=== PATIENT | male | born 1940 | race African-American/Black ===

== ENCOUNTER 2019-05-27 11:40 | Emergency (ER) | payer MEDICARE ==
--- OUTSIDE RECORDS SUMMARY | 2019-05-27 12:16 | XMS REPORT | Continuity of Care Document ---
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 [phone] Problems Description No Information Available Social History Type Date Description Comments Sex Unknown ETOH Use Currently consumes alcohol Tobacco Use Start: Unknown End: Patient is a former smoker Unknown Smoking Status Reviewed: 05/13/19 Patient is a former smoker Exercise Type/Frequency Exercises sporadically Allergies, Adverse Reactions, Alerts Active Allergies Reaction Severity Comments Date Oxycodone vomiting 04/30/2019 Medications Active Medications SIG Qnty Indications Ordering Provider Date Amlodipine Besylate 1 by mouth every Unknown 10mg day Tablets Clonidine HCL 1 by mouth twice Unknown 0.2mg Tablets a day Intelence 1 po bid Unknown 200mg Tablets Glucosamine Chondroitin 1 by mouth every Unknown 500 Complex day 500Comp Capsules Ferrous Sulfate 1 by mouth every Unknown 325mg day Tablets Isentress 1 by mouth twice Unknown 400mg Tablets a day Melatonex 2 tabs at bedtime Unknown 3-10mg Tablets ER Metoprolol Succinate ER 1 by mouth every Unknown day 50mg Tablets ER 24HR Norvir once daily Unknown 100mg Tablets Omeprazole 1 by mouth every Unknown 20mg Capsules DR day Prezista once daily Unknown 800mg Tablets Vitamin D3 once daily Unknown 2000Unit Chewtabs Acetaminophen Extra 2 tabs by mouth Unknown Strength every 8 hours as 500mg Tablets needed for pain Lactaid take 1 tab by Unknown 3000Unit Tablets mouth 3 times daily Immunizations Description No Information Available Vital Signs Date Vital Result Comment 05/13/2019 1:49pm Heart Rate 66 /min BP Systolic 111 mmHg BP Diastolic 71 mmHg Respiratory Rate 16 /min Pain Level 10 04/30/2019 11:05am Heart Rate 72 /min BP Systolic Sitting 120 mmHg BP Diastolic Sitting 70 mmHg Respiratory Rate 14 /min Body Temperature 97.0 F Results Description No Information Available Procedures Description No Information Available Medical Devices Description No Information Available Encounters Type Date Location Provider Dx Diagnosis Office Visit 05/13/2019 [facility] Y[facility] Bae[facility] M17.0 Bilateral primary 2:[facility] Wilson MD osteoarthritis of knee M25.562 Pain in left knee M25.561 Pain in right knee Office Visit 04/30/2019 [facility] Kane Hughes Asymptomatic human 11:30a For Infectious Sally Berrios immunodeficiency virus Diseases infection status Z79.899 Other retirement (current) drug therapy Assessments Date Code Description Provider 05/13/2019 M17.0 Bilateral primary osteoarthritis of knee Yousuf Wilson MD 05/13/2019 M25.562 Pain in left knee Yousuf Wilson MD 05/13/2019 M25.561 Pain in right knee Yousuf Wilson MD 04/30/2019 Z21 Asymptomatic human immunodeficiency Kane Berrios M.D. 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 Plan of Treatment Future Appointment(s):08/13/2019 11:30 am - Yousuf [facility] MD at [facility]/02/2019 1:20 pm - Kane Berrios M.D. at [facility] Prjbotjt64/19/2019 - Yousuf Wilson, MDM17.0 Bilateral primary osteoarthritis of kneeNew Therapy:Physical TherapyFollow up: Follow up: 3 mifwrpA39.562 Pain in left kneeM25.561 Pain in right knee Functional Status Description No Information Available Mental Status Description No Information Available Referrals Description No Information Available
--- OUTSIDE RECORDS SUMMARY | 2019-05-27 12:16 | XMS REPORT | Continuity of Care Document ---
:1940 External Reference #:[id number] Author Name Camila Welsh Care Team Providers Name Role Phone Anthony Davalos MD Primary Care Physician Unavailable Payers Date Identification Numbers Payment Provider Subscriber Policy Number: [id number] Medicare William Nobles PayID: [id number] [address] [place] [address] Family History Date Family Member(s) Observation Comments General No Current Problems Social History Type Date Description Comments Sex Unknown Tobacco Use Start: Unknown End: Unknown Patient is a former smoker Smoking Status Reviewed: 04/30/19 Patient is a former smoker Allergies, Adverse Reactions, Alerts Active Allergies Reaction [...] Unknown 3000Unit Tablets mouth 3 times daily Vital Signs Date Vital Result Comment 04/30/2019 11:05am Heart Rate 72 /min BP Systolic Sitting 120 mmHg BP Diastolic Sitting 70 mmHg Respiratory Rate 14 /min Body Temperature 97.0 F Plan of Treatment Future Appointment(s):09/02/2019 1:20 pm - Kane Berrios M.D. at [facility] For Infectious Smlfzvbc53/14/2019 2:00 pm - Yousuf Wilson MD at [facility]/30/2019 - Kane Berrios M.D.Z21 Asymptomatic human immunodeficiency virus infection statusComments:same ART, RAMOS filled out today to obtain recent lab results from [facility]. Is on a nuc sparingregimen which may be due to CKD, not clear he has a history of acquired nuc resistance.Follow up:4 tldlitX03.899 Other prison (current) drug therapyComments:continue regular lab monitoring and fu, flu shot in the fall
--- NOTE | 2019-05-27 13:37 | ED ---
Lower Extremity - HPI Summary HPI Summary: This patient is a 78-year-old male presenting to the ED with left ankle pain. Patient states he has had this left ankle pain for 2 days since getting out of the wheelchair plied he does endorse some swelling, but denies any difficulty with plantar flexion or dorsiflexion. Denies any numbness or tingling. Denies any other injuries. He is endorsing the pain at a 1/10, mild and only present when trying to bear weight. He told this to the staff today and the staff called ambulance/EMS. He was transported here to the ED. - History of Current Complaint Chief Complaint: EDExtremityLower Stated Complaint: INJURED ANKLE PER EMS Time Seen by Provider: 05/27/19 11:43 Hx Obtained From: Patient Mechanism Of Injury: Twisted Onset of Pain: Hours Onset/Duration: Hours Severity Initially: Moderate Severity Currently: Moderate Pain Intensity: 4 Pain Scale Used: 0-10 Numeric Timing: Constant Location: Is Discrete @ - left lateral ankle pain Associated Signs And Symptoms: Positive: Swelling. Negative: Redness, Bruising , Fever, Weakness Aggravating Factor(s): Standing, Ambulation Alleviating Factor(s): Rest Able to Bear Weight: Yes - Allergies/Home Medications Allergies/Adverse Reactions: Allergies Allergy/AdvReac Type Severity Reaction Status Date / Time acetaminophen [From Percocet] Allergy Vomiting Verified 05/27/19 11:45 oxycodone [From Percocet] Allergy Vomiting Verified 05/27/19 11:45 Home Medications: Home Medications Acetaminophen TAB* [Tylenol TAB*] 1,000 mg PO Q6H PRN 05/27/19 [History Confirmed 05/27/19] Cholecalciferol (Vitamin D3) [Vitamin D3] 2,000 unit PO DAILY 05/27/19 [History Confirmed 05/27/19] Darunavir(NF) [Prezista(NF)] 800 mg PO DAILY 05/27/19 [History Confirmed ] Etravirine (NF) [Intelence (NF)] 200 mg PO BID 05/27/19 [History Confirmed 05/27] Ferrous Sulfate TAB* 325 mg PO DAILY 05/27/19 [History Confirmed 05/27/19] Glucosam/Chondr/Collagn/Hyalur [Th Glucosamine/Chondroiti] 1 cap PO DAILY [History Confirmed 05/27/19] Lactase [Lactaid] 3,000 unit PO TID PRN 05/27/19 [History Confirmed 05/27/19] Melatonin/Pyridoxine HCl (B6) [Melatonin 3 mg Tablet] 2 each PO BEDTIME [History Confirmed 05/27/19] Metoprolol Succinate XL TAB* [Toprol XL TAB*] 50 mg PO DAILY 05/27/19 [History Confirmed 05/27/19] Omeprazole CAP(NF) [PriLOSEC CAP(NF)] 20 mg PO DAILY 05/27/19 [History Confirmed 05/27/19] Raltegravir* [Isentress*] 400 mg PO BID 05/27/19 [History Confirmed 05/27/19] Ritonavir TAB (NF) [Norvir TAB (NF)] 100 mg PO DAILY 05/27/19 [History Confirmed 05/27/19] amLODIPine TAB* [Norvasc 5 mg TAB*] 10 mg PO DAILY 05/27/19 [History Confirmed 05/27/19] cloNIDine TAB* [Catapres 0.1 MG TAB*] 0.2 mg PO DAILY 05/27/19 [History Confirmed 05/27/19] PMH/Surg Hx/FS Hx/Imm Hx Previously Healthy: Yes - Immunization History Hx Pertussis Vaccination: No Immunizations Up to Date: Yes Infectious Disease History: No Infectious Disease History: Denies: Traveled Outside the [place] in Last 30 Days - Social History Occupation: Unemployed Lives: At [facility] Alcohol Use: None Hx Substance Use: No Substance Use Type: Reports: None Hx Tobacco Use: No Smoking Status (MU): Never Smoked Tobacco Review of Systems Negative: Fever, Chills, Fatigue, Skin Diaphoresis Negative: Palpitations, Chest Pain Genitourinary: Negative Positive: no symptoms reported, see HPI Positive: Arthralgia - left lateral ankle pain Skin: Negative Neurological: Negative All Other Systems Reviewed And Are Negative: Yes Physical Exam Triage Information Reviewed: Yes Vital Signs On Initial Exam: Initial Vitals Temp Pulse Resp BP Pulse Ox 97.3 F 74 19 174/94 99 05/27/19 11:43 05/27/19 11:43 05/27/19 11:43 05/27/19 11:43 05/27/19 11:43 Vital Signs Reviewed: Yes Appearance: Positive: Well-Appearing, No Pain Distress, Well-Nourished Skin: Positive: Warm, Skin Color Reflects Adequate Perfusion Head/Face: Positive: Normal Head/Face Inspection Eyes: Positive: EOMI, NACHO, Conjunctiva Clear Neck: Positive: Supple, No Lymphadenopathy Respiratory/Lung Sounds: Positive: Breath Sounds Present Cardiovascular: Negative: Leg Edema Left, Leg Edema Right Musculoskeletal: Positive: Pain @ - left lateral ankle pain Psychiatric: Positive: Affect/Mood Appropriate AVPU Assessment: Alert Diagnostics - Vital Signs Vital Signs Temp Pulse Resp BP Pulse Ox 05/27/19 11:43 97.3 F 74 19 174/94 99 - Laboratory Lab Statement: Any lab studies that have been ordered have been reviewed, and results considered in the medical decision making process. Lower Extremity Course/Dx - Course Course Of Treatment: Patient is evaluated for left lateral and dorsum ankle pain. He states this was caught in his wheelchair about 2 days ago and it has remained in pain since that time. He does endorse a 2/10 pain, however only when attempting to bear weight. Otherwise, he states he does not have discomfort. He does endorse some swelling to the lateral side. EMS was called for a image to ensure this was not fractured. On evaluation, the patient appears well, offering no complaints. Dorsiflexion and plantar's flexion intact and without discomfort. Only slight swelling noted. No ecchymosis. - Diagnoses Differential Diagnosis/HQI/PQRI: Positive: Contusion, Fracture (Closed), Sprain , Strain Provider Diagnoses: Ankle sprain Discharge ED - Sign-Out/Discharge Documenting (check all that apply): Patient Departure Patient Received Moderate/Deep Sedation with Procedure: No - Discharge Plan Condition: Stable Disposition: HOME Patient Education Materials: Ankle Sprain (ED) Referrals: Scarlett Lee MD [Primary Care Provider] - Additional Instructions: No fracture of the ankle - Billing Disposition and Condition Condition: STABLE Disposition: Home
[2019-05-27 14:22] VITALS: BP 166/99
== END 2019-05-27 14:21 | disposition home or self-care (01) ==
LOC: ED 11:40
DX: S93.402A Sprain of unspecified ligament of left ankle, initial encounter (principal); W23.0XXA Caught, crushed, jammed, or pinched between moving objects, initial encounter; Y92.9 Unspecified place or not applicable; Z79.899 Other long term (current) drug therapy; Z88.6 Allergy status to analgesic agent; Z88.5 Allergy status to narcotic agent
CPT/HCPCS: 99282

== ENCOUNTER 2019-10-12 12:23 | Emergency (ER) | payer MEDICARE, MEDICAID ==
--- NOTE | 2019-10-12 12:57 | ED ---
Lower Extremity - HPI Summary HPI Summary: 79-year-old male presents with right ankle pain for the past couple days. States he woke up and his foot was swollen. He has had a history of gout which this does not feel similar. He denies any foot tenderness. He states he was on steroids for gout a couple days ago in the other foot. He states he may run over his foot with wheelchair. He gets around with a wheelchair. He admits to some numbness and tingling. Denies any knee pain. no calf pain. no fevers. no rash. never had this before. No other injury. - History of Current Complaint Chief Complaint: EDExtremityLower Stated Complaint: RT FOOT PAIN PER EMS Time Seen by Provider: 10/12/19 12:33 Pain Intensity: 10 - Allergies/Home Medications Allergies/Adverse Reactions: Allergies Allergy/AdvReac Type Severity Reaction Status Date / Time acetaminophen [From Percocet] Allergy Vomiting Verified 05/27/19 11:45 oxycodone [From Percocet] Allergy Vomiting Verified 05/27/19 11:45 PMH/Surg Hx/FS Hx/Imm Hx Endocrine/Hematology History: Denies: Hx Anticoagulant Therapy Musculoskeletal History: Reports: Hx Gout Infectious Disease History: No Infectious Disease History: Denies: Traveled Outside the [place] in Last 30 Days - Family History Known Family History: Positive: Non-Contributory - Social History Alcohol Use: None Alcohol Amount: "no more" Hx Substance Use: No Substance Use Type: Reports: None Substance Use Comment - Amount & Last Used: "no more" Hx Tobacco Use: No Smoking Status (MU): Former Smoker Review of Systems Negative: Fever Negative: Chest Pain Negative: Shortness Of Breath Positive: Myalgia - right ankle pain, Edema All Other Systems Reviewed And Are Negative: Yes Physical Exam Triage Information Reviewed: Yes Vital Signs On Initial Exam: Initial Vitals Temp Pulse Resp BP Pulse Ox 98.9 F 73 16 120/69 96 10/12/19 12:28 10/12/19 12:28 10/12/19 12:28 10/12/19 12:28 10/12/19 12:28 Vital Signs Reviewed: Yes Appearance: Positive: Well-Appearing Skin: Positive: Warm, Dry Head/Face: Positive: Normal Head/Face Inspection Eyes: Positive: Normal, Conjunctiva Clear ENT: Positive: Pharynx normal Respiratory/Lung Sounds: Positive: Clear to Auscultation, Breath Sounds Present Cardiovascular: Positive: Normal, RRR Musculoskeletal: Positive: Strength/ROM Intact - right foot, Edema Right - foot , Other - good pulses, sensation grossly intact, tenderness lateral right ankle Neurological: Positive: Normal Psychiatric: Positive: Normal Procedures - Sedation Patient Received Moderate/Deep Sedation with Procedure: No Diagnostics - Vital Signs Vital Signs Temp Pulse Resp BP Pulse Ox 10/12/19 12:28 98.9 F 73 16 120/69 96 - Laboratory Lab Statement: Any lab studies that have been ordered have been reviewed, and results considered in the medical decision making process. - Radiology foot Radiology Interpretation Completed By: Radiologist Summary of Radiographic Findings: IMPRESSION: DIFFUSE SOFT TISSUE SWELLING, NO FRACTURE IS SEEN. IF THE PATIENT'S SYMPTOMS PERSIST RECOMMEND FOLLOW-UP IMAGING ankle Radiology Interpretation Completed By: Radiologist Summary of Radiographic Findings: IMPRESSION: SOFT TISSUE SWELLING, NO FRACTURE IS SEEN. IF THE PATIENT'S SYMPTOMS PERSIST RECOMMEND FOLLOW-UP IMAGING. Lower Extremity Course/Dx - Course Course Of Treatment: 79-year-old male presents with right ankle pain for the past couple days. States he woke up and his foot was swollen. He has had a history of gout which this does not feel similar. He denies any foot tenderness. He states he was on steroids for gout a couple days ago in the other foot. He states he may run over his foot with wheelchair. He gets around with a wheelchair. He admits to some numbness and tingling. Denies any knee pain. no calf pain. no fevers. no rash. never had this before. No other injury. On exam has edema to top of right foot. Neurovascular intact. Tenderness over right lateral malleolus. X-rays shows no fracture. likely contusion. told to ice and elevated. patient understand and agrees with plan. - Diagnoses Differential Diagnosis/HQI/PQRI: Positive: Fracture (Closed), Sprain, Strain Provider Diagnoses: Edema of right foot Discharge ED - Sign-Out/Discharge Documenting (check all that apply): Patient Departure - Discharge Plan Condition: Good Disposition: HOME Patient Education Materials: R.I.C.E. Treatment (ED) Referrals: Scarlett Lee MD [Primary Care Provider] - Additional Instructions: Take Tylenol every 6 hours as needed for pain Apply ice, rest, elevate Keep nati on area as needed Follow up with primary care physician within 5 days Return to ED if develop any new or worsening symptoms - Billing Disposition and Condition Condition: GOOD Disposition: Home - Attestation Statements Provider Attestation: I was available for consultation for this patient. I did not evaluate the patient or participate in any medical decision making or disposition decisions unless I am specifically named in the chart as having consulted on the patient. If I have consulted on the patient, please see my own ED note on the patient encounter. Ronda Mojica MD
[2019-10-12] MEDS ORDERED: Acetaminophen TAB* 325 MG PO ONE (14:02)
--- OUTSIDE RECORDS SUMMARY | 2019-10-12 14:07 | XMS REPORT | Continuity of Care Document ---
:1940 External Reference #:[id number] Author Name Kane Berrios M.D. 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 Problems Provider Date Localized, primary osteoarthritis Yousuf Wilson MD Onset: 08/13/2019 Social History Type Date Description Comments Sex Unknown ETOH Use Currently consumes alcohol Tobacco Use Start: Unknown End: Patient is a former smoker Unknown Smoking Status Reviewed: 09/02/19 Patient is a former smoker Exercise Type/Frequency [...] Unknown 3000Unit Tablets mouth 3 times daily Medications Administered in Office Medication SIG Qnty Indications Ordering Provider Date Depomedrol 40MG BETTYE Aly 08/13/2019 Injection Depomedrol 40MG BETTYE Aly 08/13/2019 Injection Immunizations Description No Information Available Vital Signs Date Vital Result Comment 09/02/2019 1:24pm Height 67 inches 5'7" Weight 170.00 lb per pt Heart Rate 72 /min BP Systolic Sitting 128 mmHg BP Diastolic Sitting 70 mmHg Respiratory Rate 14 /min Body Temperature 97.5 F BMI (Body Mass Index) 26.6 kg/m2 08/14/2019 10:50am Height 67 inches 5'7" Weight 170.00 lb Heart Rate 73 /min BP Systolic Sitting 120 mmHg left arm reg cuff BP Diastolic Sitting 68 mmHg left arm reg cuff O2 % BldC Oximetry 91 % room air BMI (Body Mass Index) 26.6 kg/m2 Results Description No Information Available Procedures Date Code Description Status 08/13/2019 52569 Inject/Drain Joint/Bursa Major W/O US Completed 08/13/2019 29025 Inject/Drain Joint/Bursa Major W/O US Completed Medical Devices Description No Information Available Encounters Type Date Location Provider Dx Diagnosis Office Visit 08/14/2019 [facility] Jo Ann Quiñonez MD 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 N18.4 Chronic kidney disease, stage 4 (severe) R80.9 Proteinuria, unspecified Office Visit 05/13/2019 [place] Yousuf Sasha M17.0 Bilateral primary 2:15p [facility] osteoarthritis of [place] knee M25.562 Pain in left knee M25.561 Pain in right knee Office Visit 04/30/2019 [facility] Tolbert Z21 Asymptomatic human 11:30a For Infectious Sally Berrios immunodeficiency virus Diseases infection status 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 virus [HIV] infection status 09/02/2019 Z79.899 Other senior care (current) drug therapy Kane Berrios M.D. 09/02/2019 N18.4 Chronic kidney disease, stage 4 (severe) Kane Berrios M.D. 08/14/2019 I12.9 Hypertensive chronic kidney disease with Jo Ann Quiñonez MD stage 1 through stage 4 chronic kidney disease, or unspecified chronic kidney disease 08/14/2019 N18.4 Chronic kidney disease, stage 4 (severe) Jo Ann Quiñonez MD 08/14/2019 R80.9 Proteinuria, unspecified Jo Ann Quiñonez MD 08/13/2019 M17.0 Bilateral primary osteoarthritis of knee Yousuf Wilson MD 05/13/2019 M17.0 Bilateral primary osteoarthritis of knee Yousuf Wilson MD 05/13/2019 M25.562 Pain in left knee Yousuf Wilson MD 05/13/2019 M25.561 Pain in right knee Yousuf Wilson MD 04/30/2019 Z21 Asymptomatic human immunodeficiency Kane Berrios M.D. 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 Plan of Treatment Future Appointment(s):03/03/2020 9:30 am - Kane Berrios M.D. at [facility] Etvoiqcl46/20/2020 10:00 am - Jo Ann Quiñonez MD at [facility] Snjdriiaha86/19/2020 10:15 am - Yousuf Wilson MD at [facility] at Tvqckn6108/13/2019 - Yousuf Wilson MDM17.0 Bilateral primary osteoarthritis of kneeNew Therapy:Physical TherapyFollow up:Follow up: 3-4 months - Physical therapy Functional Status Description No Information Available Mental Status Description No Information Available Referrals Description No Information Available
--- OUTSIDE RECORDS SUMMARY | 2019-10-12 14:07 | XMS REPORT ---
:1940 Author Organization [facility] Care Team Providers Name Role Phone Unavailable Unavailable Unavailable Problems Condition Condition Condition Status Onset Resolution Last Treating Comments Name Details Category Date Date Treatment Clinician Date Bilateral Bilateral Diagnosis Active Siria primary primary 1-13 Garcia osteoarthri osteoarthri tis of knee tis of knee Allergies, Adverse Reactions, Alerts Allergy Allergy Status Severity Reaction(s) Onset Inactive Treating Comments Name Type Date Date Clinician oxycodone Unknown Active Unknown Reaction 2019-04 Brittany Unknown -11 (Khari) Grace [id number] Medications Ordered Filled Start Stop Current Ordering Indication Dosage Frequency Signature Comments Components Medication Medication Date Date Medication? Clinician (SIG) Name Name No Known No Known No None None None Medications Medications For This For This Patient Patient Procedures This patient has no known procedures. Results This patient has no known results.
--- OUTSIDE RECORDS SUMMARY | 2019-10-12 14:07 | XMS REPORT ---
:1940 Author Organization [facility] Care Team Providers Name Role Phone Unavailable Unavailable Unavailable Problems Condition Condition Condition Status Onset Resolution Last Treating Comments Name Details Category Date Date Treatment Clinician Date Bilateral Bilateral Diagnosis Active Siria primary primary 10-07 Garcia osteoarthri osteoarthri tis of knee tis of knee Idiopathic Idiopathic Diagnosis Active Siria gout, left gout, left Garcia ankle and ankle and foot foot Hypertensiv Hypertensiv Diagnosis Active Siria e chronic e chronic Garcia kidney kidney disease disease with stage with stage 1 through 1 through stage 4 stage 4 chronic chronic kidney kidney disease, or disease, or unspecified unspecified chronic chronic kidney kidney disease disease Essential Essential Diagnosis Active Siria (primary) (primary) Garcia hypertensio hypertensio n n 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 [HIV] [HIV] disease disease Gastro-esop Gastro-esop Diagnosis Active Siria hageal hageal Jose reflux reflux disease disease without without esophagitis esophagitis Iron Iron Diagnosis Active Siria deficiency deficiency Garcia anemia, anemia, unspecified unspecified Unsteadines Unsteadines Diagnosis Active Siria s on feet s on feet Jose Insomnia, Insomnia, Diagnosis Active Siria unspecified unspecified Garcia 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 thy thy Pain frequent Pain Mgmt Resolve 2019-10-11 Brittany pain d 10-08 08:45:00 (Khari) 08:50: Grace 00 [id number] Cardio edema Cardiovasc Active Brittany ular 10-08 (Khari) 08:50: Grace 00 [id number] Respiratory dyspnea Respirator Resolve 2019-10-11 Brittany present y d 10-08 08:45:00 (Khari) 08:50: Grace 00 [id number] Endo/Jermain anti-coagul Endo/Jermain Resolve 2019-10-11 Brittany ation d 10-08 08:45:00 (Khari) therapy 08:50: Edwards 00 [id number] Integument pressure Integument Active Brittany ulcer 10-08 (Khari) present 08:50: Edwards 00 [id number] Integument skin Integument Active Brittany integrity 10-08 (Khari) risk 08:50: Edwards 00 [id number] Elimination urinary Eliminatio Resolve 2019-10-11 Brittany incontinenc n d 10-08 08:45:00 (Khari) e 08:50: Edwards 00 [id number] Neuro confusion Neuro/Emot Active 0 Brittany present ion 10-08 (Khari) 08:50: Edwards 00 [id number] Neuro impaired Neuro/Emot Active Brittany decision-ma ion 10-08 (Khari) zhen 08:50: Edwards 00 [id number] Neuro memory Neuro/Emot Active Brittany deficit ion 10-08 (Khari) needing 08:50: Edwards supervision 00 [id number] Activity ADL Activity Active Tamera assistance 10-08 Justin required 08:50: [id number] Activity self-care Activity Active 0 Brittany deficit 10-08 (Khari) 08:50: Edwards 00 [id number] Safety risk for Safety Active 2019-0 Tamera hospitaliza 10-08 Justin tion 08:50: [id number] Safety cannot be Safety Active 0 Brittany left alone 10-08 (Khari) 08:50: Edwards 00 [id number] Safety fall risk Safety Active 2019-0 Brittany factor 10-08 (Khari) present 08:50: Edwards 00 [id number] Medication oral med Meds Resolve 2019-10-11 Brittany assistance d 10-08 08:45:00 (Khari) required 08:50: Edwards 00 [id number] Musculoskel transfer Musculoske Resolve 2019-10-11 Tamera etal assistance letal d 10-08 08:45:00 Justin required 08:50: [id number] Musculoskel requires Musculoske Resolve 2019-10-11 Brittany etal human letal d 10-08 08:45:00 (Khari) assist to 08:50: Grace leave home 00 [id number] Safety can be left Safety Active Siria alone for -17 Garcia only short 08:45: periods 00 Allergies, Adverse Reactions, Alerts Allergy Allergy Status Severity Reaction(s) Onset Inactive Treating Comments Name Type Date Date Clinician oxycodone Unknown Active Unknown Reaction 2019-04 Brittany Unknown -11 (Khari) Grace [id number] Medications Ordered Filled Start Stop Current Ordering Indication Dosage Frequency Signature Comments Components Medication Medication Date Date Medication? Clinician (SIG) Name Name amLODIPine amLODIPine 2019-0 Yes Jander Unknown Unknown 10 mg 10 mg -14 MD,Scarlett tablet tablet cloNIDine cloNIDine 2019-0 Yes Jander Unknown Unknown HCl 0.2 mg HCl 0.2 mg - MD,Scarlett tablet tablet etravirine etravirine 2019-0 Yes Jander Unknown Unknown 200 mg 200 mg -14 MD,Scarlett tablet tablet Glucosamine Glucosamine 2019-0 Yes Jander Unknown Unknown Chondroitin Chondroitin -14 MD,Scarlett 550 mg-30 550 mg-30 mg-1 mg mg-1 mg capsule capsule ferrous ferrous 2019-0 Yes Jander Unknown Unknown sulfate 325 sulfate 325 -14 MD,Scarlett mg (65 mg mg (65 mg iron) iron) tablet tablet Isentress Isentress 2019-0 Yes Jander Unknown Unknown 400 mg 400 mg -14 MD,Scarlett tablet tablet melatonin 3 melatonin 3 2019-0 Yes Jander Unknown Unknown mg tablet mg tablet -14 MD,Scarlett ritonavir ritonavir 2019-0 Yes Jander Unknown Unknown 100 mg 100 mg -14 MD,Scarlett capsule capsule omeprazole omeprazole 2019-0 Yes Jander Unknown Unknown 20 mg 20 mg -14 MD,Scarlett capsule,del capsule,del ayed ayed release release Prezista Prezista 2020-0 Yes Jander Unknown Unknown 800 mg 800 mg -14 MD,Scarlett tablet tablet Vitamin D3 Vitamin D3 2019-0 Yes Jander Unknown Unknown 2,000 unit 2,000 unit -14 MD,Scarlett tablet tablet Acetaminoph Acetaminoph 2019-0 Yes Jander Unknown Unknown en Extra en Extra -14 MD,Scarlett Strength Strength 500 mg 500 mg tablet tablet Lactaid Lactaid 2019-0 Yes Jander Unknown Unknown 3,000 unit 3,000 unit 1-14 Scarlett QUESADA tablet tablet metoprolol metoprolol Yes Jander Unknown Unknown succinate succinate 10-08 Scarlett QUESADA ER 50 mg ER 50 mg capsule capsule sprinkle, sprinkle, ext. ext. release 24 release 24 hr hr Robitussin Robitussin 2019- Yes Jander Unknown Unknown Cough and Cough and 10-08 Scarlett QUESADA Cold CF 2.5 Cold CF 2.5 mg-5 mg-50 mg-5 mg-50 mg/5 mL mg/5 mL oral liquid oral liquid Vital Signs Vital Name Observation Time Observation Value Comments SYSTOLIC mm[Hg] 2019-10-11 18:09:55 150 mm[Hg] mm[Hg] Method: Sit DIASTOLIC mm[Hg] 2019-10-11 18:09:55 88 mm[Hg] mm[Hg] Method: Sit PULSE 2019-10-11 18:09:55 92 /min /min RESP RATE 2019-10-11 18:09:55 18 /min /min TEMP 2019-10-11 18:09:55 98.5 [degF] Procedures This patient has no known procedures. Results This patient has no known results.
--- OUTSIDE RECORDS SUMMARY | 2019-10-12 14:07 | XMS REPORT ---
:1940 Author Organization [facility] Care Team Providers Name Role Phone Unavailable Unavailable Unavailable Problems Condition Condition Condition Status Onset Resolution Last Treating Comments Name Details Category Date Date Treatment Clinician Date Bilateral Bilateral Diagnosis Active 2020-0 Siria primary primary 10-07 Garcia osteoarthri osteoarthri tis of knee tis of knee Pain frequent Pain Mgmt Active 2019-0 Brittany pain 10-08 (Khari) 08:50: Edwards 00 [id number] Cardio edema Cardiovasc Active 2019-0 Brittany ular 10-08 (Khari) 08:50: Edwards 00 [id number] Respiratory dyspnea Respirator Active 2019-0 Brittany present y 10-08 (Khari) 08:50: Edwards 00 [id number] Endo/Jermain anti-coagul Endo/Jermain Active 2020-0 Brittany ation 10-08 (Khari) therapy 08:50: Edwards 00 [id number] Integument pressure Integument Active 2019-0 Brittany ulcer 10-08 (Khari) present 08:50: Edwards 00 [id number] Integument skin Integument Active 0 Brittany integrity 10-08 (Khari) risk 08:50: Edwards 00 [id number] Elimination urinary Eliminatio Active 2019-0 Brittany incontinenc n 10-08 (Khari) e 08:50: Edwards 00 [id number] Neuro confusion Neuro/Emot Active 2020-0 Brittany present ion 10-08 (Khari) 08:50: Edwards 00 [id number] Neuro impaired Neuro/Emot Active 2020-0 Brittany decision-ma ion 10-08 (Khari) zhen 08:50: Edwards 00 [id number] Neuro memory Neuro/Emot Active 2020-0 Brittany deficit ion 10-08 (Khari) needing 08:50: Edwards supervision 00 [id number] Activity ADL Activity Active 2020-0 Tamera assistance 10-08 Justin required 08:50: [id number] Activity self-care Activity Active 2020-0 Brittany deficit 10-08 (Khari) 08:50: Grace 00 [id number] Safety risk for Safety Active Tamera conkliniza 10-08 Justin tion 08:50: [id number] Safety cannot be Safety Active 0 Brittany left alone 10-08 (Khari) 08:50: Grace 00 [id number] Safety fall risk Safety Active Brittany factor 10-08 (Khari) present 08:50: Grace [id number] Medication oral med Meds Active Brittany assistance 10-08 (Khari) required 08:50: Grace 00 [id number] Musculoskel transfer Musculoske Active Tamera etal assistance letal 10-08 Justin required 08:50: [id number] Musculoskel requires Musculoske Active Brittany etal human letal 10-08 (Khari) assist to 08:50: Grace leave home 00 [id number] Allergies, Adverse Reactions, Alerts Allergy Allergy Status Severity Reaction(s) Onset Inactive Treating Comments Name Type Date Date Clinician oxycodone Unknown Active Unknown Reaction 2019-04 Brittany Unknown -11 (Khari) Edwards [id number] Medications Ordered Filled Start Stop Current Ordering Indication Dosage Frequency Signature Comments Components Medication Medication Date Date Medication? Clinician (SIG) Name Name amLODIPine amLODIPine Yes Jander Unknown Unknown 10 mg 10 mg -14 MD,Scarlett tablet tablet cloNIDine cloNIDine Yes Jander Unknown Unknown HCl 0.2 mg HCl 0.2 mg 10-08 MD,Scarlett tablet tablet etravirine etravirine Yes Jander Unknown Unknown 200 mg 200 mg - MD,Scarlett tablet tablet Glucosamine Glucosamine Yes Jander Unknown Unknown Chondroitin Chondroitin - MD,Scarlett 550 mg-30 550 mg-30 mg-1 mg mg-1 mg capsule capsule ferrous ferrous 2019-0 Yes Jander Unknown Unknown sulfate 325 sulfate 325 -14 MD,Scarlett mg (65 mg mg (65 mg iron) iron) tablet tablet Isentress Isentress Yes Jander Unknown Unknown 400 mg 400 mg -14 MD,Scarlett tablet tablet melatonin 3 melatonin 3 2019-0 Yes Jander Unknown Unknown mg tablet mg tablet - MD,Scarlett ritonavir ritonavir 2020-0 Yes Jander Unknown Unknown 100 mg 100 mg - Scarlett QUESADA capsule capsule omeprazole omeprazole 2019-0 Yes Jander Unknown Unknown 20 mg 20 mg - Scarlett QUESADA capsule,del capsule,del ayed ayed release release Prezista Prezista 2019-0 Yes Jander Unknown Unknown 800 mg 800 mg - Scarlett QUESADA tablet tablet Vitamin D3 Vitamin D3 2019-0 Yes Jander Unknown Unknown 2,000 unit 2,000 unit 10-08 Scarlett QUESADA tablet tablet Acetaminoph Acetaminoph 0 Yes Jander Unknown Unknown en Extra en Extra 10-08 Scarlett QUESADA Strength Strength 500 mg 500 mg tablet tablet Lactaid Lactaid Yes Jander Unknown Unknown 3,000 unit 3,000 unit 10-08 Scarlett QUESADA tablet tablet metoprolol metoprolol 2019-0 Yes Jander Unknown Unknown succinate succinate 10-08 Scarlett QUESADA ER 50 mg ER 50 mg capsule capsule sprinkle, sprinkle, ext. ext. release 24 release 24 hr hr Robitussin Robitussin 2019-0 Yes Jander Unknown Unknown Cough and Cough and 10-08 Scarlett QUESADA Cold CF 2.5 Cold CF 2.5 mg-5 mg-50 mg-5 mg-50 mg/5 mL mg/5 mL oral liquid oral liquid Vital Signs Vital Name Observation Time Observation Value Comments SYSTOLIC mm[Hg] 2019-10-08 18:09:52 110 mm[Hg] mm[Hg] Method: Sit DIASTOLIC mm[Hg] 2019-10-08 18:09:52 64 mm[Hg] mm[Hg] Method: Sit PULSE 2019-10-08 18:09:52 64 /min /min RESP RATE 2019-10-09 18:09:53 16 /min /min TEMP 2019-10-08 18:09:52 98.0 [degF] Procedures This patient has no known procedures. Results This patient has no known results.
--- OUTSIDE RECORDS SUMMARY | 2019-10-12 14:07 | XMS REPORT ---
:1940 Author Organization [facility] Care Team Providers Name Role Phone Unavailable Unavailable Unavailable Problems Condition Condition Condition Status Onset Resolution Last Treating Comments Name Details Category Date Date Treatment Clinician Date Bilateral Bilateral Diagnosis Active 2020-0 Siria primary primary 10-07 Garcia osteoarthri osteoarthri tis of knee tis of knee Pain frequent Pain Mgmt Active 2019-0 Brittany pain 10-08 (Khari) 08:50: Edwards 00 [id number] Cardio edema Cardiovasc Active 2019-0 Brittany ular 10-08 (Khari) 08:50: Edwards 00 [id number] Respiratory dyspnea Respirator Active 2019-0 Brittany present y 10-08 (Khari) 08:50: Edwards 00 [id number] Endo/Jermain anti-coagul Endo/Jermain Active 2020-0 Brittany ation 10-08 (Khari) therapy 08:50: Edwards 00 [id number] Integument pressure Integument Active 2019-0 Brittany ulcer 10-08 (Khari) present 08:50: Edwards 00 [id number] Integument skin Integument Active 0 Brittany integrity 10-08 (Khari) risk 08:50: Edwards 00 [id number] Elimination urinary Eliminatio Active 0 Brittany incontinenc n 10-08 (Khari) e 08:50: Edwards 00 [id number] Neuro confusion Neuro/Emot Active 2020-0 Brittany present ion 10-08 (Khari) 08:50: Edwards 00 [id number] Neuro impaired Neuro/Emot Active 2020-0 Brittany decision-ma ion 10-08 (Khari) zhen 08:50: Edwards 00 [id number] Neuro memory Neuro/Emot Active 2020-0 Brittany deficit ion 10-08 (Khari) needing 08:50: Edwards supervision 00 [id number] Activity ADL Activity Active 2020-0 Tamera assistance 10-08 Justin required 08:50: [id number] Activity self-care Activity Active 2020-0 Brittany deficit 10-08 (Khari) 08:50: Grace 00 [id number] Safety risk for Safety Active Tamera conkliniza 10-08 Justin tion 08:50: [id number] Safety cannot be Safety Active 0 Brittany left alone 10-08 (Khari) 08:50: Grace 00 [id number] Safety fall risk Safety Active Brittany factor 10-08 (Khari) present 08:50: Grace [id number] Medication oral med Meds Active Brittany assistance 10-08 (Khari) required 08:50: Grace 00 [id number] Musculoskel transfer Musculoske Active Tamera etal assistance letal 10-08 Justin required 08:50: [id number] Musculoskel requires Musculoske Active Brittany etal human letal 10-08 (Khari) assist to 08:50: Grace leave home 00 [id number] Allergies, Adverse Reactions, Alerts Allergy Allergy Status Severity Reaction(s) Onset Inactive Treating Comments Name Type Date Date Clinician oxycodone Unknown Active Unknown Reaction 2019-04 Brittany Unknown -11 (Khari) Edwards [id number] Medications Ordered Filled Start Stop Current Ordering [...]
--- OUTSIDE RECORDS SUMMARY | 2019-10-12 14:07 | XMS REPORT | Continuity of Care Document ---
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 Active Problems Provider Date Localized, primary osteoarthritis Yousuf Wilson MD Onset: 08/13/2019 Social History Type Date Description Comments Sex Unknown ETOH Use Currently consumes alcohol Tobacco Use Start: Unknown End: Patient is a former smoker Unknown Smoking Status Reviewed: 08/14/19 Patient is a former smoker Exercise Type/Frequency [...] Available Vital Signs Date Vital Result Comment 08/14/2019 10:50am Height 67 inches 5'7" Weight 170.00 lb Heart Rate 73 /min BP Systolic Sitting 120 mmHg left arm reg cuff BP Diastolic Sitting 68 mmHg left arm reg cuff O2 % BldC Oximetry 91 % room air BMI (Body Mass Index) 26.6 kg/m2 08/13/2019 11:12am Height 67 inches 5'7" Weight 170.00 lb stated Heart Rate 60 /min BP Systolic 120 mmHg BP Diastolic 60 mmHg Respiratory Rate 18 /min Pain Level 5 BMI (Body Mass Index) 26.6 kg/m2 Results Description No Information Available Procedures Date Code Description Status 08/13/2019 40151 Inject/Drain Joint/Bursa Major W/O US Completed 08/13/2019 03265 Inject/Drain Joint/Bursa Major W/O US Completed Medical Devices Description No Information Available Encounters Type Date Location Provider Dx Diagnosis Office Visit 05/13/2019 [facility] Yousuf Baez M17.0 Bilateral primary 2:15p at Areli Wilson MD osteoarthritis of knee M25.562 Pain in left knee M25.561 Pain in right knee Office Visit 04/30/2019 [facility] [place]21 Asymptomatic human 11:30a For Infectious Sally Berrios immunodeficiency virus Diseases infection status Z79.899 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 Plan of Treatment Future Appointment(s):10/14/2019 10:00 am - Jo Ann Quiñonez MD at [facility] [id number] /19/2020 10:15 am - Yousuf Wilson MD at [facility] at [id number] 1:20 pm - Kane Berrios M.D. at [facility] [id number]/20/2019 - Jo Ann Quiñonez MDN18.4 Chronic kidney disease, stage 4 ( severe)Follow up:2 months with labs Functional Status Description No Information Available Mental Status Description No Information Available Referrals Description No Information Available
[2019-10-12 15:00] VITALS: BP 139/82
== END 2019-10-12 17:15 | disposition home or self-care (01) ==
LOC: ED 12:23
DX: R60.0 Localized edema (principal); R20.0 Anesthesia of skin; R20.2 Paresthesia of skin; M25.571 Pain in right ankle and joints of right foot; Z88.6 Allergy status to analgesic agent; Z88.5 Allergy status to narcotic agent; Z87.891 Personal history of nicotine dependence
CPT/HCPCS: 99282; A9270-GY